=== PATIENT | female | born 1980 | race Caucasian/White ===

== ENCOUNTER 2017-07-02 09:04 | Day surgery (SDC) | payer OTHER ==
[~2017-07-02] VITALS: Ht 165.1 cm; Wt 110.0 kg
[2017-07-02] VITALS (15 sets, daily range): BP systolic 108–145; BP diastolic 53–91; PULSE 50–81; RESP 15–26; Ht 165.1 cm; Wt 110.0 kg
[~2017-07-02 09:04] MED LIST: CEFAZOLIN 2 GM/50 ML (PMX) 50 ML IVPB SCH; SOD CHLORIDE 0.9% 1,000 ML IV SCH
[2017-07-02] MEDS ORDERED: ONDANSETRON 4 MG INJ IV PRN (12:00)
[2017-07-02] MEDS ORDERED: ALBUTEROL 0.083% (NEB) 2.5 MG/3 ML AMP HHN PRN (12:00)
[2017-07-02] MEDS ORDERED: DIPHENHYDRAMINE 50 MG INJ IV PRN (12:00)
[2017-07-02] MEDS ORDERED: MEPERIDINE 25 MG INJ IV PRN (12:00)
[2017-07-02] MEDS ORDERED: HYDROmorphONE (0.2 MG/ML) 10ML SYG IV PRN ×2 (12:00)
[2017-07-02] MEDS ORDERED: METOCLOPRAMIDE 10 MG INJ IV PRN (12:00)
[2017-07-02] MEDS ORDERED: FENTAnyl 50 MCG/ML VIAL IV PRN ×2 (12:00)
[2017-07-02] MEDS ORDERED: FENTAnyl 50 MCG/ML VIAL ONE (12:58)
[2017-07-02] MEDS ORDERED: BUPIVACAINE 0.25% (MPF) 10 ML 10 ML VIAL ONE (13:02)
[2017-07-02] MEDS ORDERED: PROVENTIL HFA 6.7GM INHALER ONE (13:07)
[2017-07-02] MEDS ORDERED: SUCCINYLCHOLINE CHLORIDE 100 MG/5 ML SYG IV ONE (13:39)
[2017-07-02] MEDS ORDERED: SUGAMMADEX SODIUM 200 MG/2 ML VIAL IV ONE (13:39)
[2017-07-02] MEDS ORDERED: ROPIVACAINE 0.2% 20 ML VIAL ONE (13:39)
[2017-07-02] MEDS ORDERED: PROPOFOL 20 ML ONE (13:39)
[2017-07-02] MEDS ORDERED: ROCURONIUM 50 MG INJ ONE (13:39)
[2017-07-02] MEDS ORDERED: CEFAZOLIN 1 GM INJ ONE (13:39)
[2017-07-02] MEDS ORDERED: LIDOCAINE 2% (SDV) 5 ML INJ ONE (13:39)
--- NOTE | 2017-07-02 13:51 | OPR ---
Date/Time of Note Date/Time of Note DATE: 07/02/17 TIME: 13:48 Operative Report Procedure Date: Jul 02, 2017 Preoperative Diagnosis symptomatic gallstones Postoperative Diagnosis same Operation/Procedure Performed 1. laparoscopic cholecystectomy 2. therapeutic injection of subcutaneous local anesthesia Surgeon see signature line Cutter Helper none Anesthesia Type: general Estimated Blood Loss: 0 - 10 ml's Transfusion none Specimen gallbladder Grafts/Implants none Complications none Pt Condition Post Procedure: stable Indications This is a 36-year-old female with symptomatic gallstones. She requests excision of the gallbladder. Risks alternatives benefits and percent were discussed with the patient. Patient expresses understanding consents to the operation. Procedure Description Patient is taken to the OR and prepped and draped in usual sterile fashion. Surgical timeout was performed. IV antibiotics were given. Infraumbilical transverse incision is made with a 15 blade. Dissection cautery was carried down to the fascia. The fascia was grasped with Brant's and divided with curved Saba scissors 0 Vicryl U stitch was placed into the fascia. Balloon Duval trocar was introduced. Pneumoperitoneum is established. Midepigastric 12 mm optical trocar was placed under direct visualization right upper quadrant upper flank 5 mm optical trochars were placed under direct visualization. Upon initial inspection there are some adhesions to the gallbladder. The gallbladder was grasped and retracted in the lateral and our direction. Mobilization was started laterally with the cautery. This allowed careful dissection of the cystic duct. The cystic duct appeared thickened. Proximally the cystic duct was clipped with 3 clips proximal and distally was divided with 35 mm echelon vascular stapler due to his thickened tissues. The cystic artery was divided with 3 clips proximal and clip distal. The gallbladder was taken off the gallbladder bed. There is good hemostasis. The gallbladder was retrieved using Endo Catch bag. Ports removed under direct visualization. 0 Vicryl U stitch was tied down. Skin was closed using skin rochelle. Therapeutic subcutaneous local anesthesia was injected throughout all port sites. Dry dressings were applied. Mary Lou PADILLA Jul 02, 2017 13:51
[2017-07-02] MEDS ORDERED: HYDROCODONE/APAP (5/325) TAB PO ONE (14:00)
[2017-07-02] MEDS: HYDROmorphONE (0.2 MG/ML) 10ML SYG IV PRN ×3 (14:02→14:28)
== END 2017-07-02 16:32 | disposition home or self-care (01) ==
LOC: SDS 09:04
PROVIDERS: ATTEND Surgery
DX: K80.10 Calculus of gallbladder with chronic cholecystitis without obstruction (principal); J45.909 Unspecified asthma, uncomplicated; E66.09 Other obesity due to excess calories
CPT/HCPCS: 47562; 84703; 88304; J0690; J1170; J2175; J2405; J2795; J3010; Z7512; Z7610

== ENCOUNTER 2017-07-13 15:34 | Emergency (ER) | payer OTHER ==
[~2017-07-13] VITALS: Ht 172.7 cm; Wt 109.0 kg
[2017-07-13 15:38] VITALS: Ht 172.7 cm; Wt 109.0 kg
[2017-07-13] MEDS ORDERED: KETOROLAC 15 MG INJ IV STA (16:46)
[2017-07-13] MEDS ORDERED: ONDANSETRON 4 MG INJ IV STA ×2 (16:46→18:05)
--- NOTE | 2017-07-13 16:46 | ERD ---
ER Documentation Chief Complaint Chief Complaint Complains of nausea vomiting and abdominal pain x 3 days HPI This pleasant 36-year-old female presents to emergency department for evaluation of nausea and vomiting and pain. Patient reports that symptoms started yesterday after being seen by her surgeon,, states that she was here for surgical wound evaluation by , s/p cholecystectomy July 022016 patient reports constipation, abdominal pain, states she has not been able to tolerate her pain medication that she has vomited everything included water in the last 18 hours. ROS All systems reviewed and are negative except as per history of present illness. Medications Home Meds Reported Medications Oxymetazoline Hcl* (Afrin Sutherland*) 0.05% - 15 Ml Sutherland, 2 SPRAYS NASAL BID, #1 EA to each nostril 07/14/17 [ Control] No Conflict Check, 1 TAB PO DAILY 07/14/17 Discontinued Scripts Ondansetron (Ondansetron Odt) 4 Mg Tab.rapdis, 4 MG PO Q6H Y for NAUSEA AND/OR VOMITING, #10 TAB Prov:TONIA,TRUDY 07/13/17 Allergies Allergies: Coded Allergies: No Known Allergy (Unverified , 07/14/17) PMhx/Soc History of Surgery: Yes (l knee sx) Anesthesia Reaction: No Hx Neurological Disorder: No Hx Respiratory Disorders: No Hx Cardiac Disorders: No Hx Psychiatric Problems: No Hx Miscellaneous Medical Probl: No Hx Alcohol Use: No Hx Substance Use: Yes (marijuana socialy) Hx Tobacco Use: No Physical Exam Vitals Vital Signs Date Time Temp Pulse Resp B/P Pulse Ox O2 Delivery O2 Flow Rate FiO2 07/13/17 21:12 98.7 18 121/98 100 07/13/17 18:25 98.7 18 121/98 100 07/13/17 15:38 98.3 92 20 132/72 98 Vitals stable, triage notes reviewed Physical Exam Const: Well-nourished well-appearing well-hydrated 36-year-old female in no acute distress Head: Eyes: ENT: Normal External Ears, Nose and Mouth. Mucous membranes moist Neck: . Resp: Cardio: Abd: Open draining umbilical wound status post cholecystectomy 07/03/2017 Skin: Open draining umbilical wound, white exudate, excoriated erythemic surrounding tissue Back: Ext: Neur: Awake and alert Psych: Normal Mood and Affect Result Diagram: 07/13/17 1711 07/13/17 1711 Results 24 hrs Laboratory Tests Test 07/13/17 17:11 White Blood Count 13.410^3/ul Red Blood Count 4.6310^6/ul Hemoglobin 13.4g/dl Hematocrit 40.5% Mean Corpuscular Volume 87.5fl Mean Corpuscular Hemoglobin 28.9pg Mean Corpuscular Hemoglobin Concent 33.1g/dl Red Cell Distribution Width 13.2% Platelet Count 52050^3/UL Mean Platelet Volume 10.5fl Neutrophils % 87.3% Lymphocytes % 7.9% Monocytes % 3.4% Eosinophils % 0.1% Basophils % 0.4% Nucleated Red Blood Cells % 0.0/100WBC Neutrophils # 11.710^3/ul Lymphocytes # 1.110^3/ul Monocytes # 0.510^3/ul Eosinophils # 0.010^3/ul Basophils # 0.110^3/ul Nucleated Red Blood Cells # 0.010^3/ul Urine Color TAWNY Urine Clarity CLEAR Urine pH 8.0 Urine Specific [place] 1.026 Urine Ketones 2+mg/dL Urine Nitrite NEGATIVEmg/dL Urine Bilirubin 2+mg/dL Urine Urobilinogen 2+mg/dL Urine Leukocyte Esterase NEGATIVELeu/ul Urine Microscopic RBC 7/HPF Urine Microscopic WBC 1/HPF Urine Squamous Epithelial Cells FEW/HPF Urine Mucus FEW/HPF Urine Hemoglobin NEGATIVEmg/dL Urine Glucose NEGATIVEmg/dL Urine Total Protein 2+mg/dl Urine Test NEGATIVE Sodium Level 141mmol/L Potassium Level 4.3mmol/L Chloride Level 104mmol/L Carbon Dioxide Level 22mmol/L Anion Gap 19 Blood Urea Nitrogen 11mg/dl Creatinine 0.80mg/dl Glucose Level 113mg/dl Calcium Level 9.7mg/dl Total Bilirubin 2.9mg/dl Direct Bilirubin 2.00mg/dl Indirect Bilirubin 0.9mg/dl Aspartate Amino Transf (AST/SGOT) 324IU/L Alanine Aminotransferase (ALT/SGPT) 439IU/L Alkaline Phosphatase 229IU/L Total Protein 8.6g/dl Albumin 4.7g/dl Globulin 3.90g/dl Albumin/Globulin Ratio 1.20 Lipase 32U/L Current Medications Medications (Trade) Dose Ordered Sig/Yesenia Route PRN Reason Start Time Stop Time Status Last Admin Dose Admin Sodium Chloride (NS) 1,000 ml @ 1,000 mls/hr Q1H ONCE IV 07/13/17 17:00 07/13/17 17:59 DC 07/13/17 17:25 Ondansetron HCl (Zofran Inj) 4 mg ONCE STAT IV 07/13/17 16:46 07/13/17 16:51 DC 07/13/17 17:20 Ketorolac Tromethamine (Toradol) 15 mg ONCE STAT IV 07/13/17 16:46 07/13/17 16:51 DC 07/13/17 17:26 Hydromorphone HCl (Dilaudid) 1 mg ONCE STAT IV 07/13/17 17:51 07/13/17 17:52 DC 07/13/17 18:14 Ondansetron HCl (Zofran Inj) 4 mg ONCE STAT IV 07/13/17 18:05 07/13/17 18:11 DC 07/13/17 18:14 Interpretation text CBC shows no evidence of hemorrhage. WBCs slightly elevated at 13.4 Chemistry shows no evidence of significant electrolyte abnormalities or renal insufficiency Liver function tests shows no evidence of acute biliary or hepatic dysfunction Lipase shows no evidence of acute pancreatitis Urinalysis negative for leukocytosis, nitrates, or hematuria Procedures/MDM PROCEDURE: CT Abdomen and Pelvis without contrast CLINICAL INDICATION: Nausea and vomiting TECHNIQUE: Transaxial images were obtained through the abdomen and pelvis on a multi-slice scanner without the intravenous contrast administration. No oral contrast had previously been given. Sagittal and coronal re-formations were subsequently reconstructed. One or more of the following dose reduction techniques were used: - Automated exposure control. - Adjustment of the mA and/or kV according to patient size. - Use of iterative reconstruction technique. Radiation dose: CTDIvol = 23.67 mGy; DLP = 1278.01 mGy-cm. COMPARISON: No prior studies are available for comparison. FINDINGS: Lung bases: The visualized lung bases appear unremarkable. Liver: The liver is mildly enlarged but no focal lesion is identified. Gallbladder: Surgical rochelle are seen in the gallbladder fossa. Bile ducts: The common hepatic duct is dilated to 1.2 mm but the common bile duct tapers normally through the head of the pancreas. Pancreas: Appears normal with no mass or inflammation evident. Spleen: Normal in size with no focal lesion. Adrenals: Normal with no mass identified. Kidneys, ureters and bladder: The kidneys are normal in size and there is no mass, pathological calcification, or hydronephrosis evident. There is no perinephric stranding. The ureters are normal in caliber and no ureteroliths are identified. The bladder is poorly distended. Reproductive organs: The uterus is midline and no adnexal mass is evident. Stomach and bowel: The stomach appears unremarkable. There are a couple scattered colonic diverticuli but there is no evidence of bowel obstruction or inflammation. Appendix: The vermiform appendix is not discretely identified. Peritoneum: No free intraperitoneal fluid or air is identified. There is a fat containing umbilical hernia. Inferior to the herniated fat there is a fluid collection within the deep midline subcutaneous fat measuring 4.2 x 1.8 x 1.8 cm containing to bubbles of air and with stranding seen in the adjacent fat.. Aorta: Normal in caliber with no aneurysmal dilatation. IVC: Unremarkable. Lymph nodes: No pathologically enlarged nodes are identified. Osseous structures: The osseous elements appear intact. IMPRESSION: 1. There are a few scattered colonic diverticuli but there are no findings to suggest bowel obstruction or inflammation. The vermiform appendix is not discretely identified. 2. No evidence of urinary outflow obstruction or ureterolithiasis. The bladder is poorly distended. 3. Small fat containing umbilical hernia inferior to which is a small fluid collection within the deep midline subcutaneous fat measuring 4.2 x 1.8 x 1.8 cm containing bubbles of air with stranding of the adjacent fat which appears to be inflammatory. 4. Status post cholecystectomy with the common hepatic duct dilated to 1.2 mm but with the common bile duct tapering normally through the head of the pancreas. No pancreatic abnormality is identified. 5. There is no free intraperitoneal fluid or air. Physician Cole Date Time Electronically viewed and signed by Physician Cole on 07/13/2017 20:40 This pleasant 36-year-old female presents to emergency department for nausea, vomiting, and pain control, patient has had a cholecystectomy done on June, states that she did not understand that she should keep her wounds dry, states that she took a bath, she has a open draining umbilical wound, states she was here yesterday for evaluation by her surgeon . Patient reports she had no symptoms yesterday, symptoms started when she returned home. Emergency room course today includes history and physical exam, serology negative for marriage, acute infection, WBCs slightly elevated at 13.4, no evidence of electrolyte imbalance, renal insufficiency, pancreatitis, or hepatitis. Urinalysis negative for infection no urinary tract infection. Patient treated with a liter of normal saline, 4 mg of Zofran, 50 mg of IV Toradol, symptoms not improved patient continues to be in pain, reporting nausea , patient given additional 4 mg of IV Zofran, 1 mg of Dilaudid, reassessed after 20 minutes with improvement of symptoms. I called Dr. Osorio to notify a change in status, physician is not concerned with elevation in WBCs, is concerned about nausea and vomiting, requests that a noncontrast abdomen and pelvis CT be done, patient okay to discharge if normal, if abnormal findings have hospitalist admit patient, and he will consult as specialist., MD will only be called back if CAT scan is abnormal. Departure Diagnosis: Primary Impression: Nausea and vomiting Vomiting type: unspecified Vomiting Intractability: unspecified Qualified Code: R11.2 - Nausea and vomiting, intractability of vomiting not specified, unspecified vomiting type Condition: Good Patient Instructions: Nausea and Vomiting-Adult Additional Instructions: Thank you for for coming to the [facility] for your care today. Please ask your nurse or provider if you have questions about your care today and do not leave until all your questions have been answered. Please use any medications given as directed and follow-up with your doctor (or the doctor you were referred to) in the next 2-3 days. If you do not have a primary care doctor you may follow up at the [facility] (listed below). You may also use motrin and tylenol as needed for fever and/or pain unless instructed otherwise by your provider or nurse. Indications for more urgent follow-up have been discussed, but you may return to the Emergency Department at ANY time for any worrisome or worsening symptoms. If you have abdominal pain, please know that no test or exam you received is perfect and you should follow up within 8 hours for continued pain. If you had any imaging studies today, such as an X-Ray or CT Scan, these studies will be reviewed later by a radiologist. You will be called if there are important findings that were not identified today, so make sure the contact information you provided at registration is correct. If you received any narcotic pain control medicine today, such as Vicodin, Morphine or Dilaudid, your coordination and judgment may be affected for a number of hours. Please do not drive or operate heavy machinery, and you may want someone to assist you at home. If you were given a prescription for narcotic medication, be aware that it is very addictive- use sparingly and only if necessary. TRUDY RANDALL Jul 13, 2017 16:46
[2017-07-13] MEDS ORDERED: SOD CHLORIDE 0.9% 1,000 ML IV ONE (17:00)
[2017-07-13 17:23] LABS: BASOPHIL # 0.1 10^3/ul (0.0-0.1); BASOPHILS % 0.4 % (0.0-2.0); EOSINOPHILS % 0.1 % (0.0-7.0); HEMATOCRIT 40.5 % (37.0-47.0); HEMOGLOBIN 13.4 g/dl (12.0-16.0); LYMPHOCYTES # 1.1 10^3/ul (0.8-2.9); LYMPHOCYTES % 7.9 % (15.0-51.0); MEAN CORPUSCULAR HEMOGLOBIN 28.9 pg (29.0-33.0); MEAN CORPUSCULAR HGB CONC 33.1 g/dl (32.0-37.0); MEAN CORPUSCULAR VOLUME 87.5 fl (82.0-101.0); MEAN PLATELET VOLUME 10.5 fl (7.4-10.4); MONOCYTE # 0.5 10^3/ul (0.3-0.9); MONOCYTES % 3.4 % (0.0-11.0); NEUTROPHIL # 11.7 10^3/ul (1.6-7.5); NEUTROPHILS % 87.3 % (39.0-77.0); PLATELET COUNT 434 10^3/UL (140-415); RED BLOOD COUNT 4.63 10^6/ul (4.20-5.40); RED CELL DISTRIBUTION WIDTH 13.2 % (11.5-14.5); WHITE BLOOD COUNT 13.4 10^3/ul (4.8-10.8)
[2017-07-13 17:38] LABS: ADD UMIC YES; UR ASCORBIC ACID NEGATIVE (NEGATIVE); UR BILIRUBIN (Dip) 2+ mg/dL (NEGATIVE); UR BLOOD (Dip) NEGATIVE (NEGATIVE); UR CLARITY CLEAR (CLEAR); UR COLOR AMBER (YELLOW); UR GLUCOSE (Dip) NEGATIVE (NEGATIVE); UR KETONES (Dip) 2+ mg/dL (NEGATIVE); UR LEUKOCYTE ESTERASE (Dip) NEGATIVE Leu/ul (NEGATIVE); UR MUCUS FEW /HPF (NONE SEEN); UR NITRITE (Dip) NEGATIVE (NEGATIVE); UR RBC 7 /HPF (0-5); UR SPECIFIC GRAVITY (Dip) 1.026 (1.003-1.030); UR SQUAMOUS EPITHELIAL CELL FEW /HPF (FEW); UR TOTAL PROTEIN (Dip) 2+ mg/dl (NEGATIVE); UR UROBILINOGEN (Dip) 2+ mg/dL (NEGATIVE)
[2017-07-13 17:45] LABS: ALBUMIN 4.7 g/dl (3.3-4.9); ALBUMIN/GLOBULIN RATIO 1.2; BILIRUBIN,INDIRECT 0.9 mg/dl (0-1.1); BILIRUBIN,TOTAL 2.9 mg/dl (0.2-1.3); CALCIUM 9.7 mg/dl (8.4-10.2); CREATININE 0.8 mg/dl (0.44-1.00); POTASSIUM 4.3 mmol/L (3.5-5.1); TOTAL PROTEIN 8.6 g/dl (6.1-8.1)
[2017-07-13] MEDS ORDERED: HYDROmorphONE 1 MG/ML SYG IV STA (17:51)
--- NOTE | 2017-07-13 20:41 | RADRPT ---
PROCEDURE: CT Abdomen and Pelvis without contrast CLINICAL INDICATION: Nausea and vomiting TECHNIQUE: Transaxial images were obtained through the abdomen and pelvis on a multi-slice scanner without the intravenous contrast administration. No oral contrast had previously been given. Sagit dennise and coronal re-formations were subsequently reconstructed. One or more of the following dose reduction techniques were used: - Automated exposure control. - Adjustment of the mA and/or kV according to patient size. - Use of iterative reconstruction technique. Radiation dose: CTDIvol = 23.67 mGy; DLP = 1278.01 mGy-cm. COMPARISON: No prior studies are available for comparison. FINDINGS: Lung bases: The visualized lung bases appear unremarkable. Liver: The liver is mildly enlarged but no focal lesion is identified. Gallbladder: Surgical rochelle are seen in the gallbladder fossa. Bile ducts: The common hepatic duct is dilated to 1.2 mm but the common bile duct tapers normally th rough the head of the pancreas. Pancreas: Appears normal with no mass or inflammation evident. Spleen: Normal in size with no focal lesion. Adrenals: Normal with no mass identified. Kidneys, ureters and bladder: The kidneys are normal in size and there is no mass, pathological calc ification, or hydronephrosis evident. There is no perinephric stranding. The ureters are normal in c aliber and no ureteroliths are identified. The bladder is poorly distended. Reproductive organs: The uterus is midline and no adnexal mass is evident. Stomach and bowel: The stomach appears unremarkable. There are a couple scattered colonic diverticul i but there is no evidence of bowel obstruction or inflammation. Appendix: The vermiform appendix is not discretely identified. Peritoneum: No free intraperitoneal fluid or air is identified. There is a fat containing umbilical hernia. Inferior to the herniated fat there is a fluid collection within the deep midline subcutaneo us fat measuring 4.2 x 1.8 x 1.8 cm containing to bubbles of air and with stranding seen in the ledy cent fat.. Aorta: Normal in caliber with no aneurysmal dilatation. IVC: Unremarkable. Lymph nodes: No pathologically enlarged nodes are identified. Osseous structures: The osseous elements appear intact. IMPRESSION: 1. There are a few scattered colonic diverticuli but there are no findings to suggest bowel obstruc tion or inflammation. The vermiform appendix is not discretely identified. 2. No evidence of urinary outflow obstruction or ureterolithiasis. The bladder is poorly distended. 3. Small fat containing umbilical hernia inferior to which is a small fluid collection within the d eep midline subcutaneous fat measuring 4.2 x 1.8 x 1.8 cm containing bubbles of air with stranding o f the adjacent fat which appears to be inflammatory. 4. Status post cholecystectomy with the common hepatic duct dilated to 1.2 mm but with the common b ile duct tapering normally through the head of the pancreas. No pancreatic abnormality is identified . 5. There is no free intraperitoneal fluid or air. Physician Cole Date Time Electronically viewed and signed by Physician Cole on 07/13/2017 20:40 RH/
[2017-07-13] MEDS ORDERED: ONDA4TAB14 PO (20:55)
[2017-07-13 21:12] VITALS: BP 121/98; RESP 18; TEMP 98.7
[2017-07-14] MEDS ORDERED: BIRTH CONTROL PO (11:20)
[2017-07-14] MEDS ORDERED: OXYM15SP34 NASAL (17:19)
== END 2017-07-13 21:24 | disposition home or self-care (01) ==
LOC: FTE 15:34
DX: R11.2 Nausea with vomiting, unspecified (principal)
CPT/HCPCS: 74176; 80053; 81001; 83690; 84703; 85025; 96374; 96375; 96376; J1170; J1885; J2405; J7030; Z7502

== ENCOUNTER 2017-07-14 05:56 | Inpatient (IN) | payer OTHER ==
[~2017-07-14] VITALS: Ht 165.1 cm; Wt 111.0 kg
[~2017-07-14 05:56] MED LIST changes: -CEFAZOLIN 2 GM/50 ML (PMX) 50 ML IVPB SCH; +ONDA4TAB14 PO; -SOD CHLORIDE 0.9% 1,000 ML IV SCH
[2017-07-14 06:01] VITALS: Ht 165.1 cm; Wt 111.0 kg
[2017-07-14] MEDS ORDERED: ONDANSETRON 4 MG INJ IV STA (08:18)
[2017-07-14] MEDS ORDERED: morphine 10 MG INJ IV ONE (08:30)
[2017-07-14] MEDS ORDERED: SOD CHLORIDE 0.9% 1,000 ML IV ONE (08:30)
[2017-07-14] MEDS ORDERED: PIPER-TAZO 3.375 GM IV (PMX) 100 ML IVPB ONE (08:30)
[2017-07-14 09:07] LABS: BASOPHIL # 0.1 10^3/ul (0.0-0.1); BASOPHILS % 0.6 % (0.0-2.0); EOSINOPHILS # 0.2 10^3/ul (0.0-0.5); EOSINOPHILS % 1.4 % (0.0-7.0); HEMATOCRIT 36.3 % (37.0-47.0); HEMOGLOBIN 11.8 g/dl (12.0-16.0); LYMPHOCYTES # 1.8 10^3/ul (0.8-2.9); LYMPHOCYTES % 14.8 % (15.0-51.0); MEAN CORPUSCULAR HEMOGLOBIN 29.6 pg (29.0-33.0); MEAN CORPUSCULAR HGB CONC 32.5 g/dl (32.0-37.0); MEAN CORPUSCULAR VOLUME 91.2 fl (82.0-101.0); MEAN PLATELET VOLUME 11.3 fl (7.4-10.4); MONOCYTE # 0.7 10^3/ul (0.3-0.9); NEUTROPHILS % 76.4 % (39.0-77.0); PLATELET COUNT 299 10^3/UL (140-415); RED BLOOD COUNT 3.98 10^6/ul (4.20-5.40); RED CELL DISTRIBUTION WIDTH 13.4 % (11.5-14.5); WHITE BLOOD COUNT 11.8 10^3/ul (4.8-10.8)
[2017-07-14 09:30] LABS: ALBUMIN 4.1 g/dl (3.3-4.9); ALBUMIN/GLOBULIN RATIO 1.2; BILIRUBIN,DIRECT 2.4 mg/dl (0.00-0.20); BILIRUBIN,INDIRECT 0.9 mg/dl (0-1.1); BILIRUBIN,TOTAL 3.3 mg/dl (0.2-1.3); CALCIUM 8.9 mg/dl (8.4-10.2); CREATININE 0.91 mg/dl (0.44-1.00); POTASSIUM 4.1 mmol/L (3.5-5.1); TOTAL PROTEIN 7.5 g/dl (6.1-8.1)
[2017-07-14 09:32] LABS: ADD UMIC YES; UR ASCORBIC ACID NEGATIVE (NEGATIVE); UR BILIRUBIN (Dip) 2+ mg/dL (NEGATIVE); UR BLOOD (Dip) 1+ mg/dL (NEGATIVE); UR CLARITY CLEAR (CLEAR); UR COLOR AMBER (YELLOW); UR GLUCOSE (Dip) NEGATIVE (NEGATIVE); UR KETONES (Dip) TRACE mg/dL (NEGATIVE); UR LEUKOCYTE ESTERASE (Dip) TRACE Leu/ul (NEGATIVE); UR MUCUS FEW /HPF (NONE SEEN); UR NITRITE (Dip) NEGATIVE (NEGATIVE); UR RBC 1 /HPF (0-5); UR SPECIFIC GRAVITY (Dip) 1.015 (1.003-1.030); UR SQUAMOUS EPITHELIAL CELL FEW /HPF (FEW); UR TOTAL PROTEIN (Dip) 1+ mg/dl (NEGATIVE); UR UROBILINOGEN (Dip) 1+ mg/dL (NEGATIVE)
--- NOTE | 2017-07-14 10:09 | ERD ---
ER Documentation Chief Complaint Chief Complaint right sided abd pain x 3 days, scanty urination x 3 days HPI This is a 36-year-old female that presents to the ER complaining of worsening right upper quadrant abdominal pain with associated nausea and nonbilious nonbloody vomiting. Patient states that pain is severe and constant and she is unable to find a comfortable position to sitting. Patient denies any fevers or chills. She had a cholecystectomy on July 02, 2017 by . Patient was seen in the ER last night, and was consulted. The scan was ordered, and upon findings patient was discharged home. Also complains of open abdominal wound from surgery has had clear to light yellow discharge. , her dressing was changed yesterday here in the ER. Patient denies any new redness, pain or discharge from the area. Patient denies any urinary frequency or dysuria, however admits to dark "soy sauce" colored urine. ROS 12 point review of systems was done, all negative except per HPI. Medications Home Meds Active Scripts Ondansetron (Ondansetron Odt) 4 Mg Tab.rapdis, 4 MG PO Q6H Y for NAUSEA AND/OR VOMITING, #10 TAB Prov:TONIA,TRUDY 07/13/17 Allergies Allergies: Coded Allergies: No Known Allergy (Unverified , 06/29/17) PMhx/Soc History of Surgery: Yes (l knee sx, GALLBLADDER 2016) Anesthesia Reaction: No Hx Neurological Disorder: No Hx Respiratory Disorders: No Hx Cardiac Disorders: No Hx Psychiatric Problems: No Hx Miscellaneous Medical Probl: No Hx Alcohol Use: No Hx Substance Use: Yes (marijuana socialy) Hx Tobacco Use: No Smoking Status: Never smoker Physical Exam Vitals Vital Signs Date Time Temp Pulse Resp B/P Pulse Ox O2 Delivery O2 Flow Rate FiO2 07/14/17 09:00 98.3 59 20 113/86 98 Room Air 07/14/17 06:01 98.3 73 20 126/79 98 Physical Exam GENERAL: The patient is well developed and appropriate for usual state of health , in no apparent distress. HEENT: Atraumatic. CHEST: Clear to auscultation bilaterally. There are no rales, wheezes or rhonchi. HEART: Regular rate and rhythm. No murmurs, clicks, rubs or gallops. ABDOMEN: Patient tender to palpation to the right upper quadrant. Good bowel sounds. No rebound or guarding. No gross peritonitis. No gross organomegaly or masses. EXTREMITIES: Equal pulses bilaterally. There is no peripheral clubbing, cyanosis or edema. No focal swelling or erythema. Full range of motion. Grossly neurovascularly intact. NEURO: Alert and oriented. SKIN: There is an open incision wound to the umbilicus with clear to light yellow discharge. no surrounding erythema or warmth to the touch. Result Diagram: 07/14/17 0837 07/14/1737 Results 24 hrs Laboratory Tests Test 07/14/17 08:37 07/14/17 08:58 White Blood Count 11.810^3/ul Red Blood Count 3.9810^6/ul Hemoglobin 11.8g/dl Hematocrit 36.3% Mean Corpuscular Volume 91.2fl Mean Corpuscular Hemoglobin 29.6pg Mean Corpuscular Hemoglobin Concent 32.5g/dl Red Cell Distribution Width 13.4% Platelet Count 76028^3/UL Mean Platelet Volume 11.3fl Neutrophils % 76.4% Lymphocytes % 14.8% Monocytes % 6.0% Eosinophils % 1.4% Basophils % 0.6% Nucleated Red Blood Cells % 0.0/100WBC Neutrophils # 9.010^3/ul Lymphocytes # 1.810^3/ul Monocytes # 0.710^3/ul Eosinophils # 0.210^3/ul Basophils # 0.110^3/ul Nucleated Red Blood Cells # 0.010^3/ul Sodium Level 140mmol/L Potassium Level 4.1mmol/L Chloride Level 105mmol/L Carbon Dioxide Level 22mmol/L Anion Gap 17 Blood Urea Nitrogen 12mg/dl Creatinine 0.91mg/dl Glucose Level 113mg/dl Calcium Level 8.9mg/dl Total Bilirubin 3.3mg/dl Direct Bilirubin 2.40mg/dl Indirect Bilirubin 0.9mg/dl Aspartate Amino Transf (AST/SGOT) 261IU/L Alanine Aminotransferase (ALT/SGPT) 377IU/L Alkaline Phosphatase 203IU/L Total Protein 7.5g/dl Albumin 4.1g/dl Globulin 3.40g/dl Albumin/Globulin Ratio 1.20 Urine Color TAWNY Urine Clarity CLEAR Urine pH 7.0 Urine Specific [place] 1.015 Urine Ketones TRACEmg/dL Urine Nitrite NEGATIVEmg/dL Urine Bilirubin 2+mg/dL Urine Urobilinogen 1+mg/dL Urine Leukocyte Esterase TRACELeu/ul Urine Microscopic RBC 1/HPF Urine Microscopic WBC 6/HPF Urine Squamous Epithelial Cells FEW/HPF Urine Mucus FEW/HPF Urine Hemoglobin 1+mg/dL Urine Glucose NEGATIVEmg/dL Urine Total Protein 1+mg/dl Current Medications Medications (Trade) Dose Ordered Sig/Yesenia Route PRN Reason Start Time Stop Time Status Last Admin Dose Admin Piperacillin Sod/ Tazobactam Sod 100 ml @ 200 mls/hr ONCE ONCE IVPB 07/14/17 08:30 07/14/17 08:59 DC 07/14/17 09:38 Sodium Chloride (NS) 1,000 ml @ 1,000 mls/hr Q1H ONCE IV 07/14/17 08:30 07/14/17 09:29 DC 07/14/17 08:48 Ondansetron HCl (Zofran Inj) 4 mg ONCE STAT IV 07/14/17 08:18 07/14/17 08:21 DC 07/14/17 08:48 Morphine Sulfate (morphine) 6 mg ONCE ONCE IV 07/14/17 08:30 07/14/17 08:31 DC 07/14/17 08:48 Procedures/MDM I discussed this case with Dr. Osorio. Patient was seen here last night and complains of worsening symptoms. Patient's labs repeated as AST, ALT, alk phos, bilirubin were elevated previously. Will also be admitted for continued monitoring and further testing. Patient was started on IV Zosyn and given fluids and morphine in the ER. See further dictation for further management and care. Departure Diagnosis: Primary Impression: Abdominal pain Condition: Stable YOLI LARSEN Jul 14, 2017 10:09
[2017-07-14] MEDS ORDERED: BIRTH CONTROL PO (11:20)
[2017-07-14 13:00] VITALS: TEMP 98.3
[2017-07-14] MEDS ORDERED: HYDROmorphONE 0.5 MG/0.5 ML SYG IV PRN ×2 (13:00)
[2017-07-14] MEDS ORDERED: PIPER-TAZO 3.375 GM IV (PMX) 100 ML IVPB SCH (13:00)
[2017-07-14 14:15] VITALS: BP 116/68; PULSE 74; RESP 18
[2017-07-14] MEDS: D5W-0.45 NACL + KCL 20 MEQ 1,000 ML IV SCH ×2 (15:17→21:34)
[2017-07-14] MEDS: PIPER-TAZO 3.375 GM IV (PMX) 100 ML IVPB SCH ×2 (15:38→22:05)
--- NOTE | 2017-07-14 15:51 | RADRPT ---
PROCEDURE: MRI MRCP. CLINICAL INDICATION: Abdominal pain. Nausea and vomiting. TECHNIQUE: MRCP was performed without contrast. 3-D/multiplanar reformations and coronal rotating M IP images of the biliary tree were performed by the technologist and at an independent workstation. COMPARISON: CT dated 07/13/2017. FINDINGS: There is mild prominence of the biliary tree, likely related to reservoir effect given th e surgical absence of the gallbladder. There is no filling defect within the biliary tree. There is no pancreatic ductal dilatation or intraluminal filling defect. The remaining visualized abdomen is unremarkable. IMPRESSION: 1. Unremarkable MRCP. No choledocholithiasis or findings to suggest a source of the patient's sympt oms. 2. Status post cholecystectomy. RPTAT: HLBP .Abdiel Dukes MD, Date Time Electronically viewed and signed by .Abdiel Dukes MD, on 07/14/2017 15:19 .P/
--- NOTE | 2017-07-14 15:51 | CONS ---
Date/Time of Note Date/Time of Note DATE: 07/14/17 TIME: 15:41 Assessment/Plan Assessment/Plan Chief Complaint/Hosp Course Impression: 1. abnormal LFT: but elevated previously 2. CT showed inflamed umbilical hernia 3. right sided abdominal pain 4. dehydration Recommendations: 1. monitor for normalization of LFT 2. continue abx per primary and surgery 3. patient say that she got MRCP already but I do not see the result. I will wait until tomorrow to assess for MRCP. If not done, I will order. Reason is to r/o retained stone. 4. continue supportive care Problems: Consultation Date/Type/Reason Admit Date/Time Jul 14, 2017 at 14:13 Date of Consultation: Jul 14, 2017 Type of Consultation: GI Reason for Consultation abdominal pain Hx of Present Illness 36-year-old female s/p recent lap tato on 07-02-17 who was doing well until last night when she developed worsening right upper quadrant abdominal pain with associated nausea and nonbilious nonbloody vomiting. Patient states that pain is severe and constant and she is unable to find a comfortable position to sitting. Patient denies any fevers or chills. Patient denies any urinary frequency or dysuria, however admits to dark "soy sauce" colored urine. CT showed inflamed umbilical hernia. MRCP pending. All point ROS administered, pertinent positives and negatives in HPI otherwise negative. Past Medical History Medical History: gallstones Past Surgical History Past Surgical Hx: cholecystectomy Family History Significant Family History: no pertinent family hx Social History Alcohol Use: none Smoking Status: Never smoker Drug Use: marijuana Exam/Review of Systems Vital Signs Vitals Vital Signs Date Time Temp Pulse Resp B/P Pulse Ox O2 Delivery O2 Flow Rate FiO2 07/14/17 13:00 98.3 58 20 105/71 98 Room Air Exam Constitutional: alert, oriented, well developed Psych: nl mood/affect, no complaints Head: atraumatic, normocephalic Eyes: EOMI, icteric, nl lids ENMT: mucosa pink and moist, nl external ears & nose, nl lips & teeth, nl nasal mucosa & septum Neck: non-tender, supple Respiratory: clear to auscultation, normal air movement Cardiovascular: nl pulses, regular rate and rhythm Gastrointestinal: bowel sounds, non-tender, soft Musculoskeletal: nl extremities to inspection, nl gait and stance Neurological: nl mental status, nl speech, nl strength Results Result Diagram: 07/14/17 0837 07/14/17 0837 Results 24 hrs Laboratory Tests Test 07/14/17 08:37 07/14/17 08:58 White Blood Count 11.8 H Red Blood Count 3.98 L Hemoglobin 11.8 L Hematocrit 36.3 L Mean Corpuscular Volume 91.2 Mean Corpuscular Hemoglobin 29.6 Mean Corpuscular Hemoglobin Concent 32.5 Red Cell Distribution Width 13.4 Platelet Count 299 # Mean Platelet Volume 11.3 H Neutrophils % 76.4 Lymphocytes % 14.8 L Monocytes % 6.0 Eosinophils % 1.4 Basophils % 0.6 Nucleated Red Blood Cells % 0.0 Neutrophils # 9.0 H Lymphocytes # 1.8 Monocytes # 0.7 Eosinophils # 0.2 Basophils # 0.1 Nucleated Red Blood Cells # 0.0 Sodium Level 140 Potassium Level 4.1 Chloride Level 105 Carbon Dioxide Level 22 Anion Gap 17 H Blood Urea Nitrogen 12 Creatinine 0.91 Glucose Level 113 Calcium Level 8.9 Total Bilirubin 3.3 H Direct Bilirubin 2.40 H Indirect Bilirubin 0.9 Aspartate Amino Transf (AST/SGOT) 261 H Alanine Aminotransferase (ALT/SGPT) 377 H Alkaline Phosphatase 203 H Total Protein 7.5 # Albumin 4.1 Globulin 3.40 H Albumin/Globulin Ratio 1.20 Urine Color TAWNY Urine Clarity CLEAR Urine pH 7.0 Urine Specific [place] 1.015 Urine Ketones TRACE A Urine Nitrite NEGATIVE Urine Bilirubin 2+ H Urine Urobilinogen 1+ H Urine Leukocyte Esterase TRACE A Urine Microscopic RBC 1 Urine Microscopic WBC 6 H Urine Squamous Epithelial Cells FEW Urine Mucus FEW A Urine Hemoglobin 1+ H Urine Glucose NEGATIVE Urine Total Protein 1+ H Medications Medications Current Medications Potassium Chloride/Dextrose/ Sod Cl (D5-1/2ns + KCl 20 Meq) 1,000 ml @ 100 mls/ hr Q10H IV ; Start 07/14/17 at 13:00 Ondansetron HCl (Zofran Inj) 4 mg Q4H PRN IV NAUSEA AND/OR VOMITING; Start at 13:00 Pantoprazole (Protonix Iv) 40 mg DAILY@06 IV ; Start 07/15/17 at 06:00 Hydromorphone HCl (Dilaudid) 1 mg Q4H PRN IV PAIN LEVEL 6-10; Start 07/14/17 at 13:00 Hydromorphone HCl 0.5 mg 0.5 mg Q4H PRN IV PAIN LEVEL 1-5; Start 07/14/17 at 13:00 Piperacillin Sod/ Tazobactam Sod (Zosyn 3.375gm/ 100 ml (Pmx)) 100 ml @ 200 mls /hr Q6H IVPB ; Start 07/14/17 at 16:00 KYAW GOTTI MD Jul 14, 2017 15:50
[2017-07-14] MEDS ORDERED: OXYM15SP34 NASAL (17:19)
[2017-07-14] MEDS ORDERED: OXYMETAZOLINE 0.05% 15 ML NAS SPRAY NASAL PRN (18:30)
[2017-07-14 20:00] VITALS: BP 102/53; RESP 19
[2017-07-14 20:29] LABS: ADD UMIC YES; UR ASCORBIC ACID NEGATIVE (NEGATIVE); UR BILIRUBIN (Dip) NEGATIVE (NEGATIVE); UR BLOOD (Dip) 1+ mg/dL (NEGATIVE); UR CLARITY CLEAR (CLEAR); UR COLOR AMBER (YELLOW); UR GLUCOSE (Dip) NEGATIVE (NEGATIVE); UR KETONES (Dip) NEGATIVE (NEGATIVE); UR LEUKOCYTE ESTERASE (Dip) NEGATIVE Leu/ul (NEGATIVE); UR NITRITE (Dip) NEGATIVE (NEGATIVE); UR RBC 2 /HPF (0-5); UR SPECIFIC GRAVITY (Dip) 1.017 (1.003-1.030); UR TOTAL PROTEIN (Dip) NEGATIVE (NEGATIVE); UR UROBILINOGEN (Dip) NEGATIVE (NEGATIVE)
[2017-07-14] MEDS: HYDROmorphONE 2 MG/ML SYG IV PRN (22:24)
[2017-07-15] MEDS: D5W-0.45 NACL + KCL 20 MEQ 1,000 ML IV SCH ×2 (01:10→10:14)
[2017-07-15 02:02] VITALS: BP 116/59; RESP 19
[2017-07-15] MEDS: ONDANSETRON 4 MG INJ IV PRN ×3 (02:51→19:42)
--- NOTE | 2017-07-15 03:06 | HP ---
DATE OF ADMISSION: 07/14/2017 CHIEF COMPLAINT: Abdominal pain and vomiting and wound discharge. HISTORY OF PRESENT ILLNESS: The patient is a 36-year-old obese female with a history of symptomatic gallstone. The patient underwent laparoscopic cholecystectomy on 07/02/2017. Patient was discharg ed home on the same day. The surgery was done by Dr. Osorio. The patient subsequently followed up wit tim Osorio after a few days and rochelle were removed. After removal of rochelle, she started having d rainage from the periumbilical incision and also has increasing pain and vomiting for the last 2 to 3 days. The patient did come to the ER on 07/13/2017 with nausea, vomiting, and abdominal pain; how ever, after treatment she was discharged home. The patient had a white count of 13.4 and elevated l iver enzymes with bilirubin of 2.9. The patient did undergo a CT of the abdomen and pelvis yesterda y, which revealed no free intraperitoneal air or fluid status post cholecystectomy with colon hepati c duct dilated to 1.2 mm, but with the common bile duct tapering normally through the head of the pa ncreas. The patient also had small fat containing umbilical hernia inferior to which it is a small fluid collection within the deep midline subcutaneous fat measuring 4.2 x 1.8 x 1.8 cm, containing b olus of air with stranding of adjacent fat which appears to be inflammatory. The patient was reques mary to follow up with her PMD in 2 to 3 days; however, she returns to ER with continuous symptoms an d drainage, and was seen by ER physician. The patient was noted to have white count of 11.8 with no left shift. The patient was afebrile; however, the patient's liver functions did reveal bilirubin went up to 3.3, mostly direct. The patient continues to have significant elevation of liver enzymes including AST 261, ALT 377, alkaline phosphatase 203. The patient is being admitted for further ev aluation and management. Denies any chest pain or shortness of breath. No reported headache, dizzi ness, syncope. No reported leg pain or itching. No reported leg pain. PAST SURGICAL HISTORY: The patient is status post left knee surgery for benign tumor, details not a vailable. ALLERGIES: NONE. SOCIAL HISTORY: The patient occasionally smokes marijuana. FAMILY HISTORY: The patient has a twin sister who also had gallstone. MEDICATIONS: The patient was on [place] and control pill. PHYSICAL EXAMINATION: GENERAL: The patient is conscious, awake, alert. VITAL SIGNS: Temperature 98.3, pulse 59, respirations 20, blood pressure 113/86, O2 saturation 98% on room air. HEENT: No eye discharge or redness. Oropharynx clear. NECK: Supple. No mass, no thyromegaly. LUNGS: Clear to auscultation. CARDIOVASCULAR: S1, S2 normal. No murmur. ABDOMEN: Soft. Upper abdominal tenderness present. The periumbilical incision is open and has dis charge. No surrounding erythema. NEUROLOGIC: The patient is awake, alert, oriented with no gross focal deficit. LABORATORY DATA: Reviewed. IMPRESSION: 1. Nausea, vomiting, abdominal pain with elevated liver enzymes, status post cholecystectomy, rule out common bile duct stone. The patient's lipase was normal yesterday. Will do followup lipase aga in. The patient will be started empirically on IV Zosyn. 2. Wound dehiscence in the periumbilical area with possible wound infection and fluid collection. I spoke with Dr. Osorio, recommended local dressing. I will also obtain wound culture. The patient al so reported dark urine, possibly related to obstructive jaundice but will also obtain UA and C and S . 3. Obesity. Dr. Fountain has been called from GI standpoint. MRCP is pending. Wound care as per Dr Adrian Osorio. We will continue local wound care. Further recommendations will depend on patient's hospita l course and recommendations from consultants. We will continue to follow her from a medical standp oint. Will continue IV fluid, IV Protonix, SCDs for DVT prophylaxis and IV Zosyn. Dictated By: ZONIA ARTEAGA/NTS Conf#: [id number] DID#: [id number]
[2017-07-15] MEDS: PIPER-TAZO 3.375 GM IV (PMX) 100 ML IVPB SCH ×3 (04:10→16:19)
[2017-07-15] MEDS: HYDROmorphONE 2 MG/ML SYG IV PRN ×2 (05:27→19:43)
[2017-07-15] MEDS ORDERED: PANTOPRAZOLE 40 MG INJ IV SCH (06:00)
[2017-07-15 06:21] LABS: BASOPHIL # 0.1 10^3/ul (0.0-0.1); EOSINOPHILS # 0.4 10^3/ul (0.0-0.5); EOSINOPHILS % 4.1 % (0.0-7.0); HEMATOCRIT 35.1 % (37.0-47.0); HEMOGLOBIN 10.6 g/dl (12.0-16.0); LYMPHOCYTES # 2.2 10^3/ul (0.8-2.9); LYMPHOCYTES % 24.1 % (15.0-51.0); MEAN CORPUSCULAR HEMOGLOBIN 28.3 pg (29.0-33.0); MEAN CORPUSCULAR HGB CONC 30.2 g/dl (32.0-37.0); MEAN CORPUSCULAR VOLUME 93.6 fl (82.0-101.0); MONOCYTE # 0.6 10^3/ul (0.3-0.9); MONOCYTES % 6.8 % (0.0-11.0); NEUTROPHIL # 5.7 10^3/ul (1.6-7.5); NEUTROPHILS % 62.9 % (39.0-77.0); PLATELET COUNT 320 10^3/UL (140-415); RED BLOOD COUNT 3.75 10^6/ul (4.20-5.40)
[2017-07-15 06:54] LABS: ALBUMIN 3.3 g/dl (3.3-4.9); ALBUMIN/GLOBULIN RATIO 0.97; BILIRUBIN,INDIRECT 0.5 mg/dl (0-1.1); BILIRUBIN,TOTAL 0.5 mg/dl (0.2-1.3); CALCIUM 8.4 mg/dl (8.4-10.2); CREATININE 1.01 mg/dl (0.44-1.00); POTASSIUM 4.2 mmol/L (3.5-5.1); TOTAL PROTEIN 6.7 g/dl (6.1-8.1)
[2017-07-15 07:45] VITALS: BP 147/67; RESP 16
--- NOTE | 2017-07-15 07:54 | CONS ---
Date/Time of Note Date/Time of Note DATE: 07/15/17 TIME: 07:52 Assessment/Plan Assessment/Plan Chief Complaint/Hosp Course Impression: 1. abnormal LFT: but elevated previously 2. CT showed inflamed umbilical hernia 3. right sided abdominal pain 4. dehydration 5. MRCP r/o CBD or retained stone Recommendations: 1. monitor for normalization of LFT 2. continue abx per primary and surgery 3. No indication for ERCP at this time. 4. check acute hepatitis panel 5. continue supportive care Problems: Consultation Date/Type/Reason Admit Date/Time Jul 14, 2017 at 14:13 Initial Consult Date 07/14/17 Type of Consultation: GI 24 HR Interval Summary Free Text/Dictation less abdominal pain, no n/v Constitutional: improved Exam/Review of Systems Vital Signs Vitals Vital Signs Date Time Temp Pulse Resp B/P Pulse Ox O2 Delivery O2 Flow Rate FiO2 07/15/17 07:45 98.3 71 16 147/67 99 07/14/17 14:15 Room Air Intake and Output 07/14/17 07/14/17 07/15/17 15:00 23:00 07:00 Intake Total 325 ml 1400 ml Output Total 1250 ml Balance 325 ml 150 ml Exam Constitutional: alert, obese, oriented, well developed Psych: nl mood/affect, no complaints Head: atraumatic, normocephalic Eyes: nl conjunctiva, nl lids, nl sclera ENMT: mucosa pink and moist, nl external ears & nose, nl lips & teeth, nl nasal mucosa & septum Neck: non-tender, supple Respiratory: clear to auscultation, normal air movement Cardiovascular: nl pulses, regular rate and rhythm Gastrointestinal: bowel sounds, non-tender, soft Neurological: nl mental status, nl speech, nl strength Results Result Diagram: 07/15/17 0459 07/15/17 0459 Results 24 hrs Laboratory Tests Test 07/14/17 08:37 07/14/17 08:58 07/14/17 20:08 07/15/17 04:59 White Blood Count 11.8 H 9.0 # Red Blood Count 3.98 L 3.75 L Hemoglobin 11.8 L 10.6 L Hematocrit 36.3 L 35.1 L Mean Corpuscular Volume 91.2 93.6 Mean Corpuscular Hemoglobin 29.6 28.3 L Mean Corpuscular Hemoglobin Concent 32.5 30.2 L Red Cell Distribution Width 13.4 14.0 Platelet Count 299 # 320 Mean Platelet Volume 11.3 H 11.0 H Neutrophils % 76.4 62.9 Lymphocytes % 14.8 L 24.1 Monocytes % 6.0 6.8 Eosinophils % 1.4 4.1 Basophils % 0.6 1.0 Nucleated Red Blood Cells % 0.0 0.0 Neutrophils # 9.0 H 5.7 Lymphocytes # 1.8 2.2 Monocytes # 0.7 0.6 Eosinophils # 0.2 0.4 Basophils # 0.1 0.1 Nucleated Red Blood Cells # 0.0 0.0 Sodium Level 140 142 Potassium Level 4.1 4.2 Chloride Level 105 109 Carbon Dioxide Level 22 26 Anion Gap 17 H 11 Blood Urea Nitrogen 12 12 Creatinine 0.91 1.01 H Glucose Level 113 96 Calcium Level 8.9 8.4 Total Bilirubin 3.3 H 0.5 # Direct Bilirubin 2.40 H 0.00 # Indirect Bilirubin 0.9 0.5 Aspartate Amino Transf (AST/SGOT) 261 H 95 H Alanine Aminotransferase (ALT/SGPT) 377 H 282 H Alkaline Phosphatase 203 H 155 H Total Protein 7.5 # 6.7 Albumin 4.1 3.3 Globulin 3.40 H 3.40 H Albumin/Globulin Ratio 1.20 0.97 Urine Color TAWNY TAWNY Urine Clarity CLEAR CLEAR Urine pH 7.0 5.0 Urine Specific [place] 1.015 1.017 Urine Ketones TRACE A NEGATIVE Urine Nitrite NEGATIVE NEGATIVE Urine Bilirubin 2+ H NEGATIVE Urine Urobilinogen 1+ H NEGATIVE Urine Leukocyte Esterase TRACE A NEGATIVE Urine Microscopic RBC 1 2 Urine Microscopic WBC 6 H 2 Urine Squamous Epithelial Cells FEW Urine Mucus FEW A Urine Hemoglobin 1+ H 1+ H Urine Glucose NEGATIVE NEGATIVE Urine Total Protein 1+ H NEGATIVE Lipase 25 Medications Medications Current Medications Potassium Chloride/Dextrose/ Sod Cl (D5-1/2ns + KCl 20 Meq) 1,000 ml @ 125 mls/ hr Q8H IV Last administered on 07/15/17 01:10; Admin Dose 125 MLS/HR; Start 07/14/17 at 13:00 Ondansetron HCl (Zofran Inj) 4 mg Q4H PRN IV NAUSEA AND/OR VOMITING Last administered on 07/15/17 02:51; Admin Dose 4 MG; Start 07/14/17 at 13:00 Pantoprazole (Protonix Iv) 40 mg DAILY@06 IV Last administered on 07/15/17 05 :26; Admin Dose 40 MG; Start 07/15/17 at 06:00 Hydromorphone HCl 0.5 mg 0.5 mg Q4H PRN IV PAIN LEVEL 1-5 Last administered on 07/14/17 15:38; Admin Dose 0.5 MG; Start 07/14/17 at 13:00 Piperacillin Sod/ Tazobactam Sod (Zosyn 3.375gm/ 100 ml (Pmx)) 100 ml @ 200 mls /hr Q6H IVPB Last administered on 07/15/17 04:10; Admin Dose 200 MLS/HR; Start 07/14/17 at 16:00 Influenza Virus Vaccine (Fluzone) 0.5 ml ONCE ONCE IM* ; Start 07/15/17 at 10: 00; Stop 07/15/17 at 10:01 Patient Own Medication 1 ea DAILY PO ; Start 07/15/17 at 09:00 Oxymetazoline HCl (Afrin [place]) 1 spray BID PRN NASAL NASAL CONGESTION; Start 07/14/17 at 18:30 Hydromorphone HCl (Dilaudid) 1 mg Q4H PRN IV PAIN LEVEL 6-10 Last administered on 07/15/17 05:27; Admin Dose 1 MG; Start 07/14/17 at 22:20 KYAW GOTTI MD Jul 15, 2017 07:54
[2017-07-15] MEDS: BLISOVI PO SCH (09:14)
[2017-07-15] MEDS ORDERED: INFLUENZA VIRUS VACCINE 0.5 ML SYG IM* ONE (10:00)
--- NOTE | 2017-07-15 14:05 | PN ---
DATE: 07/15/2017 SUBJECTIVE: The patient had nausea today, although she did not vomit. No reported fever or chills. No reported chest pain or shortness of breath. PHYSICAL EXAMINATION: GENERAL: The patient is conscious, awake, alert. VITAL SIGNS: Temperature 98.3, pulse 71, blood pressure 147/67, O2 sat 99% on room air, respiration s 16. HEENT: Conjunctivae and lids are normal. NECK: No mass. LUNGS: Fairly clear. CARDIOVASCULAR: S1, S2 normal. ABDOMEN: Soft. Diminished drainage from the periumbilical incision. Upper abdominal tenderness pr esent. Bowel sounds plus. EXTREMITIES: No leg edema. NEUROLOGIC: The patient is awake, alert, fairly oriented. LABORATORY DATA: WBC 9, hemoglobin 10.6, platelets 320. Sodium 142, potassium 4.2, creatinine 1, g lucose 96. Bilirubin is normal today. AST is down to 95, ALT down to 282, alk phos down to 155. IMPRESSION: 1. Status post laparoscopic cholecystectomy with elevated liver enzymes and bilirubin resolved. MR CP negative for any stone. The patient did have a significant drop in bilirubin and liver enzymes, may have passed small common bile duct stone. Continue IV antibiotic. Wound culture from the periu mbilical incision is pending. Continue empiric IV Zosyn. Hepatitis panel pending. Will start on c lear liquid diet and advance as tolerated. Wound care consult is also pending. Dictated By: ZONIA ARTEAGA/ISMAEL Conf#: [id number] DID#: [id number]
[2017-07-15 15:46] VITALS: BP 118/61; RESP 18
[2017-07-15 20:00] VITALS: BP 121/58; RESP 19
[2017-07-15] MEDS: metroNIDAZOLE 500 MG/NS (PMX) 100 ML IVPB SCH (21:24)
[2017-07-15] MEDS: MEROPENEM 1 GM/50ML(PMX) 50 ML IVPB SCH (21:24)
[2017-07-15] MEDS: ZOLPIDEM 5 MG TAB PO PRN (21:24)
[2017-07-16 02:00] VITALS: BP 110/58; RESP 16
[2017-07-16] MEDS: D5W-0.45 NACL + KCL 20 MEQ 1,000 ML IV SCH ×2 (03:39→17:02)
[2017-07-16] MEDS: metroNIDAZOLE 500 MG/NS (PMX) 100 ML IVPB SCH ×3 (05:37→21:05)
[2017-07-16 05:59] LABS: HAAIG REFLEX REFLEX FILED
[2017-07-16 06:05] LABS: BASOPHIL # 0.1 10^3/ul (0.0-0.1); BASOPHILS % 0.8 % (0.0-2.0); EOSINOPHILS # 0.3 10^3/ul (0.0-0.5); EOSINOPHILS % 3.5 % (0.0-7.0); HEMOGLOBIN 10.7 g/dl (12.0-16.0); LYMPHOCYTES # 1.9 10^3/ul (0.8-2.9); LYMPHOCYTES % 20.5 % (15.0-51.0); MEAN CORPUSCULAR HEMOGLOBIN 29.2 pg (29.0-33.0); MEAN CORPUSCULAR HGB CONC 31.5 g/dl (32.0-37.0); MEAN CORPUSCULAR VOLUME 92.6 fl (82.0-101.0); MEAN PLATELET VOLUME 10.9 fl (7.4-10.4); MONOCYTE # 0.6 10^3/ul (0.3-0.9); MONOCYTES % 6.2 % (0.0-11.0); NEUTROPHIL # 6.3 10^3/ul (1.6-7.5); NEUTROPHILS % 67.7 % (39.0-77.0); PLATELET COUNT 335 10^3/UL (140-415); RED BLOOD COUNT 3.67 10^6/ul (4.20-5.40); RED CELL DISTRIBUTION WIDTH 13.5 % (11.5-14.5); WHITE BLOOD COUNT 9.3 10^3/ul (4.8-10.8)
[2017-07-16 06:39] LABS: CALCIUM 8.5 mg/dl (8.4-10.2); CREATININE 0.82 mg/dl (0.44-1.00)
[2017-07-16 07:26] LABS: HEPATITIS B CORE ANTIBODY NEGATIVE (NEGATIVE)
[2017-07-16 08:05] VITALS: BP 111/62; RESP 18
[2017-07-16] MEDS: MEROPENEM 1 GM/50ML(PMX) 50 ML IVPB SCH ×2 (08:20→21:05)
[2017-07-16] MEDS: FAMOTIDINE 20 MG INJ IV SCH ×2 (08:20→21:05)
[2017-07-16] MEDS: BLISOVI PO SCH (08:24)
[2017-07-16] MEDS: HYDROmorphONE 2 MG/ML SYG IV PRN (09:13)
[2017-07-16] MEDS: ONDANSETRON 4 MG INJ IV PRN (09:13)
--- NOTE | 2017-07-16 09:28 | CONS ---
DATE OF ADMISSION: 07/14/2017 DATE OF CONSULTATION: 07/16/2017 INDICATION: This is a 36-year-old female with morbid obesity who underwent a laparoscopic cholecyst ectomy. Postoperatively, she was doing well and on her postoperative visit she had her rochelle héctor harley. The wound apparently had opened and had drainage in the next couple days. She reports that morro wu has some frozen pizza for a few days later and started having nausea and vomiting. She was evalua mary in the ER. CT scan was performed and did not show any findings. However, because of the nausea and vomiting, she was admitted. She underwent further evaluation with an MRCP which did not show a ny findings that were concerning from the gallbladder perspective. She did not have any choledochol ithiasis and her biliary system was normal. However, she did have increased LFTs. GI physician was also consulted and concurred with the current management. General surgery was also consulted to ev aluate the patient. PAST MEDICAL HISTORY: None. PAST SURGICAL HISTORY: Laparoscopic cholecystectomy, knee surgery. ALLERGIES: NO KNOWN DRUG ALLERGIES. SOCIAL HISTORY: Occasionally smokes marijuana. Denies alcohol or tobacco use. LABORATORY DATA: White blood cell count 9.3, hemoglobin 10.7, hematocrit 34, platelet count 335. S odium is 141, potassium is 4.0, chloride is 110, carbon dioxide is 25, BUN is 6, creatinine is 0.8, glucose is 99, total bilirubin 0.5, AST of 95, ALT is 282, alkaline phosphatase 155, trending down, lipase was 25. MRCP shows unremarkable MRCP, no choledocholithiasis or findings to suggest the sour ce of the patient's symptoms status post cholecystectomy. PHYSICAL EXAMINATION: VITAL SIGNS: Temperature is 98.4, pulse is 90, respiratory rate is 18, blood pressure is 111/62. G ENERAL: Obese female. CARDIOVASCULAR: Regular rate and rhythm. LUNGS: Clear to auscultation. ABDOMEN: Soft, focal tenderness around the infraumbilical wound with some drainage, no purulence, n o evidence of active infection. ASSESSMENT AND PLAN: This is a 36-year-old female with nausea, vomiting and diarrhea after cholecystectomy. There is no evidence of any biliary injury. Most likely she has gastroenteritis that is slowly resolving. We w ill continue to follow. Will start diet today. Dictated By: BRE BELL/NTS Conf#: [id number] DID#: [id number]
[2017-07-16 14:30] VITALS: BP 97/55; RESP 18
--- NOTE | 2017-07-16 17:57 | PN ---
Date/Time of Note Date/Time of Note DATE: 07/16/17 TIME: 17:49 Assessment/Plan VTE Prophylaxis VTE Prophylaxis Intervention: SCD's Lines/Catheters IV [facility] Peripheral IV Assessment/Plan Chief Complaint/Hosp Course Patient stated that she feels slightly better, no emesis today, able to tolerate diet. Problems: Assessment/Plan - Nausea and vomiting, Dr. Ricketts is following in gastroenterology consultation. MRCP negative for any choledocholithiasis. - Status post laparoscopic cholecystectomy. Dr. Osorio is following in general surgery consultation. - Post op wound, cont abx. F/up on wound cx. Further recommendations based on clinical course. Plan of care discussed with Dr. Howell. Exam/Review of Systems Vital Signs Vitals Vital Signs Date Time Temp Pulse Resp B/P Pulse Ox O2 Delivery O2 Flow Rate FiO2 07/16/17 14:30 98.0 68 18 97/55 98 07/14/17 14:15 Room Air Intake and Output 07/15/17 07/15/17 07/16/17 15:00 23:00 07:00 Intake Total 725 ml 1585 ml 1720 ml Output Total 600 ml 700 ml Balance 725 ml 985 ml 1020 ml Exam Constitutional: alert Neck: supple Respiratory: normal air movement Cardiovascular: nl pulses Gastrointestinal: non-tender, other (s/p laparoscopic surgical incisions, open wound), soft Musculoskeletal: nl extremities to inspection Extremities: normal pulses Results Result Diagram: 07/16/17 0443 07/16/17 0448 Results 24 hrs Laboratory Tests Test 07/16/17 02:00 07/16/17 04:43 07/16/17 04:48 Stool Occult Blood NEGATIVE White Blood Count 9.3 Red Blood Count 3.67 L Hemoglobin 10.7 L Hematocrit 34.0 L Mean Corpuscular Volume 92.6 Mean Corpuscular Hemoglobin 29.2 Mean Corpuscular Hemoglobin Concent 31.5 L Red Cell Distribution Width 13.5 Platelet Count 335 Mean Platelet Volume 10.9 H Neutrophils % 67.7 Lymphocytes % 20.5 Monocytes % 6.2 Eosinophils % 3.5 Basophils % 0.8 Nucleated Red Blood Cells % 0.0 Neutrophils # 6.3 Lymphocytes # 1.9 Monocytes # 0.6 Eosinophils # 0.3 Basophils # 0.1 Nucleated Red Blood Cells # 0.0 Sodium Level 141 Potassium Level 4.0 Chloride Level 110 Carbon Dioxide Level 25 Anion Gap 10 Blood Urea Nitrogen 6 L Creatinine 0.82 Glucose Level 99 Calcium Level 8.5 Hepatitis B Surface Antigen NEGATIVE Hepatitis B Core Total Antibody NEGATIVE Hepatitis C Antibody NEGATIVE Medications Medications Current Medications Potassium Chloride/Dextrose/ Sod Cl (D5-1/2ns + KCl 20 Meq) 1,000 ml @ 75 mls/ hr [id number] IV Last administered on 07/16/17 17:02; Admin Dose 75 MLS/HR; Start 07/14/17 at 13:00 Ondansetron HCl (Zofran Inj) 4 mg Q4H PRN IV NAUSEA AND/OR VOMITING Last administered on 07/16/17 09:13; Admin Dose 4 MG; Start 07/14/17 at 13:00 Hydromorphone HCl (Dilaudid) 0.5 mg Q4H PRN IV PAIN LEVEL 1-5 Last administered on 07/14/17 15:38; Admin Dose 0.5 MG; Start 07/14/17 at 13:00 Patient Own Medication 1 ea DAILY PO Last administered on 07/16/17 08:24; Admin Dose 1 EA; Start 07/15/17 at 09:00 Oxymetazoline HCl (Afrin [place]) 1 spray BID PRN NASAL NASAL CONGESTION; Start 07/14/17 at 18:30 Hydromorphone HCl (Dilaudid) 1 mg Q4H PRN IV PAIN LEVEL 6-10 Last administered on 07/16/17 09:13; Admin Dose 1 MG; Start 07/14/17 at 22:20 Zolpidem Tartrate (Ambien) 5 mg HS PRN PO INSOMNIA Last administered on 21:24; Admin Dose 5 MG; Start 07/15/17 at 11:30 Famotidine 20 mg 20 mg Q12 IV Last administered on 07/16/17 08:20; Admin Dose 20 MG; Start 07/16/17 at 09:00 Meropenem/Sodium Chloride 50 ml @ 100 mls/hr BID IVPB Last administered on 08:20; Admin Dose 100 MLS/HR; Start 07/15/17 at 21:00 Metronidazole (Flagyl 500 Mg (Pmx)) 100 ml @ 100 mls/hr Q8 IVPB Last administered on 10/23/17at 13:36; Admin Dose 100 MLS/HR; Start 07/15/17 at 22: 00 MADAN CARD Jul 16, 2017 17:57
[2017-07-16 19:50] VITALS: BP 112/56; RESP 16
--- NOTE | 2017-07-16 20:19 | CONS ---
Date/Time of Note Date/Time of Note DATE: 07/16/17 TIME: 20:19 Assessment/Plan Assessment/Plan Additional Assessment/Plan Impression: 1. abnormal LFT: but elevated previously 2. CT showed inflamed umbilical hernia 3. right sided abdominal pain 4. dehydration 5. MRCP r/o CBD or retained stone, it was negative Recommendations: 1. monitor for normalization of LFT 2. continue abx per primary and surgery 3. No indication for ERCP at this time. 4. check acute hepatitis panel 5. continue supportive care Consultation Date/Type/Reason Admit Date/Time Jul 14, 2017 at 14:13 Initial Consult Date 07/14/17 Type of Consultation: GI 24 HR Interval Summary Constitutional: improved Exam/Review of Systems Vital Signs Vitals Vital Signs Date Time Temp Pulse Resp B/P Pulse Ox O2 Delivery O2 Flow Rate FiO2 07/16/17 19:50 98.7 69 16 112/56 98 07/14/17 14:15 Room Air Intake and Output 07/15/17 07/15/17 07/16/17 15:00 23:00 07:00 Intake Total 725 ml 1585 ml 1720 ml Output Total 600 ml 700 ml Balance 725 ml 985 ml 1020 ml Exam Constitutional: alert, oriented, well developed Psych: nl mood/affect, no complaints Head: atraumatic, normocephalic Eyes: EOMI, PERRL, nl conjunctiva, nl lids, nl sclera ENMT: nl external ears & nose, nl lips & teeth, nl nasal mucosa & septum Neck: non-tender, supple Respiratory: clear to auscultation, normal air movement Cardiovascular: nl pulses, regular rate and rhythm Gastrointestinal: nl liver, spleen, non-tender, soft Musculoskeletal: nl extremities to inspection, nl gait and stance Extremities: normal pulses 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, nl mental status, nl speech, nl strength Skin: nl turgor, No rash or lesions Lymph: nl lymph nodes Results Result Diagram: 07/16/17 0443 07/16/17 0448 Results 24 hrs Laboratory Tests Test 07/16/17 02:00 07/16/17 04:43 07/16/17 04:48 Stool Occult Blood NEGATIVE White Blood Count 9.3 Red Blood Count 3.67 L Hemoglobin 10.7 L Hematocrit 34.0 L Mean Corpuscular Volume 92.6 Mean Corpuscular Hemoglobin 29.2 Mean Corpuscular Hemoglobin Concent 31.5 L Red Cell Distribution Width 13.5 Platelet Count 335 Mean Platelet Volume 10.9 H Neutrophils % 67.7 Lymphocytes % 20.5 Monocytes % 6.2 Eosinophils % 3.5 Basophils % 0.8 Nucleated Red Blood Cells % 0.0 Neutrophils # 6.3 Lymphocytes # 1.9 Monocytes # 0.6 Eosinophils # 0.3 Basophils # 0.1 Nucleated Red Blood Cells # 0.0 Sodium Level 141 Potassium Level 4.0 Chloride Level 110 Carbon Dioxide Level 25 Anion Gap 10 Blood Urea Nitrogen 6 L Creatinine 0.82 Glucose Level 99 Calcium Level 8.5 Hepatitis B Surface Antigen NEGATIVE Hepatitis B Core Total Antibody NEGATIVE Hepatitis C Antibody NEGATIVE Medications Medications Current Medications Potassium Chloride/Dextrose/ Sod Cl (D5-1/2ns + KCl 20 Meq) 1,000 ml @ 75 mls/ hr [id number] IV Last administered on 07/16/17 17:02; Admin Dose 75 MLS/HR; Start 07/14/17 at 13:00 Ondansetron HCl (Zofran Inj) 4 mg Q4H PRN IV NAUSEA AND/OR VOMITING Last administered on 07/16/17 09:13; Admin Dose 4 MG; Start 07/14/17 at 13:00 Hydromorphone HCl (Dilaudid) 0.5 mg Q4H PRN IV PAIN LEVEL 1-5 Last administered on 07/14/17 15:38; Admin Dose 0.5 MG; Start 07/14/17 at 13:00 Patient Own Medication 1 ea DAILY PO Last administered on 07/16/17 08:24; Admin Dose 1 EA; Start 07/15/17 at 09:00 Oxymetazoline HCl (Afrin [place]) 1 spray BID PRN NASAL NASAL CONGESTION; Start 07/14/17 at 18:30 Hydromorphone HCl (Dilaudid) 1 mg Q4H PRN IV PAIN LEVEL 6-10 Last administered on 07/16/17 09:13; Admin Dose 1 MG; Start 07/14/17 at 22:20 Zolpidem Tartrate (Ambien) 5 mg HS PRN PO INSOMNIA Last administered on 21:24; Admin Dose 5 MG; Start 07/15/17 at 11:30 Famotidine 20 mg 20 mg Q12 IV Last administered on 07/16/17 08:20; Admin Dose 20 MG; Start 07/16/17 at 09:00 Meropenem/Sodium Chloride 50 ml @ 100 mls/hr BID IVPB Last administered on 08:20; Admin Dose 100 MLS/HR; Start 07/15/17 at 21:00 Metronidazole (Flagyl 500 Mg (Pmx)) 100 ml @ 100 mls/hr Q8 IVPB Last administered on 07/16/17 13:36; Admin Dose 100 MLS/HR; Start 07/15/17 at 22: 00 ISSA GASTON MD Jul 16, 2017 20:19
[2017-07-16] MEDS: ZOLPIDEM 5 MG TAB PO PRN (21:45)
[2017-07-17 02:28] VITALS: BP 113/57; RESP 16
[2017-07-17 05:22] LABS: BASOPHIL # 0.1 10^3/ul (0.0-0.1); BASOPHILS % 0.8 % (0.0-2.0); EOSINOPHILS # 0.4 10^3/ul (0.0-0.5); EOSINOPHILS % 3.8 % (0.0-7.0); HEMATOCRIT 34.8 % (37.0-47.0); HEMOGLOBIN 10.7 g/dl (12.0-16.0); LYMPHOCYTES # 2.3 10^3/ul (0.8-2.9); MEAN CORPUSCULAR HEMOGLOBIN 28.6 pg (29.0-33.0); MEAN CORPUSCULAR HGB CONC 30.7 g/dl (32.0-37.0); MEAN PLATELET VOLUME 10.9 fl (7.4-10.4); MONOCYTE # 0.7 10^3/ul (0.3-0.9); NEUTROPHIL # 5.8 10^3/ul (1.6-7.5); NEUTROPHILS % 62.3 % (39.0-77.0); PLATELET COUNT 314 10^3/UL (140-415); RED BLOOD COUNT 3.74 10^6/ul (4.20-5.40); RED CELL DISTRIBUTION WIDTH 13.6 % (11.5-14.5); WHITE BLOOD COUNT 9.3 10^3/ul (4.8-10.8)
[2017-07-17] MEDS: D5W-0.45 NACL + KCL 20 MEQ 1,000 ML IV SCH (05:34)
[2017-07-17 05:42] LABS: CALCIUM 8.6 mg/dl (8.4-10.2); CREATININE 0.89 mg/dl (0.44-1.00)
[2017-07-17] MEDS: metroNIDAZOLE 500 MG/NS (PMX) 100 ML IVPB SCH ×2 (05:43→14:40)
[2017-07-17] MEDS: HYDROmorphONE 2 MG/ML SYG IV PRN (06:45)
[2017-07-17] MEDS: ONDANSETRON 4 MG INJ IV PRN ×2 (07:40→12:11)
[2017-07-17 08:11] VITALS: BP 120/56; RESP 19
[2017-07-17] MEDS: FAMOTIDINE 20 MG INJ IV SCH (09:40)
[2017-07-17] MEDS: BLISOVI PO SCH (09:40)
[2017-07-17] MEDS: MEROPENEM 1 GM/50ML(PMX) 50 ML IVPB SCH (09:40)
--- NOTE | 2017-07-17 12:41 | CONS ---
Date/Time of Note Date/Time of Note DATE: 07/17/17 TIME: 12:39 Assessment/Plan Assessment/Plan Additional Assessment/Plan Impression: 1. abnormal LFT: but elevated previously 2. CT showed inflamed umbilical hernia 3. right sided abdominal pain, resolved 4. dehydration 5. MRCP r/o CBD or retained stone, it was negative Recommendations: 1. monitor for normalization of LFT 2. continue abx per primary and surgery 3. No indication for ERCP at this time. 4. check acute hepatitis panel, all hepatitis panel negative 5. continue supportive care 6. Surgical wound care it is healing well Consultation Date/Type/Reason Admit Date/Time Jul 14, 2017 at 14:13 Initial Consult Date 07/14/17 Type of Consultation: GI 24 HR Interval Summary Free Text/Dictation No right upper quadrant pain no nausea Patient complains of pain over the laparoscopic port wound Exam/Review of Systems Vital Signs Vitals Vital Signs Date Time Temp Pulse Resp B/P Pulse Ox O2 Delivery O2 Flow Rate FiO2 07/17/17 08:11 97.6 54 19 120/56 97 07/14/17 14:15 Room Air Intake and Output 07/16/17 07/16/17 07/17/17 15:00 23:00 07:00 Intake Total 150 ml 2010 ml 900 ml Output Total 1000 ml Balance 150 ml 1010 ml 900 ml Exam Constitutional: alert, oriented, well developed Psych: nl mood/affect, no complaints Head: atraumatic, normocephalic Eyes: EOMI, PERRL, nl conjunctiva, nl lids, nl sclera ENMT: nl external ears & nose, nl lips & teeth, nl nasal mucosa & septum Neck: non-tender, supple Respiratory: clear to auscultation, normal air movement Cardiovascular: nl pulses, regular rate and rhythm Gastrointestinal: nl liver, spleen, non-tender, soft Musculoskeletal: nl extremities to inspection, nl gait and stance Extremities: normal pulses Neurological: BULB TESTER II-XII intact, nl mental status, nl speech, nl strength Skin: nl turgor, No rash or lesions Lymph: nl lymph nodes Results Result Diagram: 07/17/17 0433 07/17/17 0433 Results 24 hrs Laboratory Tests Test 07/17/17 04:33 White Blood Count 9.3 Red Blood Count 3.74 L Hemoglobin 10.7 L Hematocrit 34.8 L Mean Corpuscular Volume 93.0 Mean Corpuscular Hemoglobin 28.6 L Mean Corpuscular Hemoglobin Concent 30.7 L Red Cell Distribution Width 13.6 Platelet Count 314 Mean Platelet Volume 10.9 H Neutrophils % 62.3 Lymphocytes % 25.0 Monocytes % 7.0 Eosinophils % 3.8 Basophils % 0.8 Nucleated Red Blood Cells % 0.0 Neutrophils # 5.8 Lymphocytes # 2.3 Monocytes # 0.7 Eosinophils # 0.4 Basophils # 0.1 Nucleated Red Blood Cells # 0.0 Sodium Level 141 Potassium Level 4.0 Chloride Level 109 Carbon Dioxide Level 27 Anion Gap 9 Blood Urea Nitrogen 7 Creatinine 0.89 Glucose Level 103 Calcium Level 8.6 Medications Medications Current Medications Potassium Chloride/Dextrose/ Sod Cl (D5-1/2ns + KCl 20 Meq) 1,000 ml @ 75 mls/ hr [id number] IV Last administered on 07/16/17 17:02; Admin Dose 75 MLS/HR; Start 07/14/17 at 13:00 Ondansetron HCl (Zofran Inj) 4 mg Q4H PRN IV NAUSEA AND/OR VOMITING Last administered on 07/17/17 12:11; Admin Dose 4 MG; Start 07/14/17 at 13:00 Hydromorphone HCl (Dilaudid) 0.5 mg Q4H PRN IV PAIN LEVEL 1-5 Last administered on 07/14/17 15:38; Admin Dose 0.5 MG; Start 07/14/17 at 13:00 Patient Own Medication 1 ea DAILY PO Last administered on 07/17/17 09:40; Admin Dose 1 EA; Start 07/15/17 at 09:00 Oxymetazoline HCl (Afrin [place]) 1 spray BID PRN NASAL NASAL CONGESTION; Start 07/14/17 at 18:30 Hydromorphone HCl (Dilaudid) 1 mg Q4H PRN IV PAIN LEVEL 6-10 Last administered on 07/17/17 06:45; Admin Dose 1 MG; Start 07/14/17 at 22:20 Zolpidem Tartrate (Ambien) 5 mg HS PRN PO INSOMNIA Last administered on 21:45; Admin Dose 5 MG; Start 07/15/17 at 11:30 Famotidine 20 mg 20 mg Q12 IV Last administered on 07/17/17 09:40; Admin Dose 20 MG; Start 07/16/17 at 09:00 Meropenem/Sodium Chloride 50 ml @ 100 mls/hr BID IVPB Last administered on 09:40; Admin Dose 100 MLS/HR; Start 07/15/17 at 21:00 Metronidazole (Flagyl 500 Mg (Pmx)) 100 ml @ 100 mls/hr Q8 IVPB Last administered on 07/17/17 05:43; Admin Dose 100 MLS/HR; Start 07/15/17 at 22: 00 ISSA GASTON MD Jul 17, 2017 12:41
--- NOTE | 2017-07-17 13:20 | PN ---
Date/Time of Note Date/Time of Note DATE: 07/17/17 TIME: 13:20 Assessment/Plan VTE Prophylaxis VTE Prophylaxis Intervention: SCD's Lines/Catheters IV Catheter Type (from Nrs): Peripheral IV Assessment/Plan Chief Complaint/Hosp Course s/p lap tato with small open wound had gastroenteritis now resolving Problems: Assessment/Plan dc home Subjective 24 Hr Interval Summary Free Text/Dictation doing well, no issues, tolerating diet Exam/Review of Systems Vital Signs Vitals Vital Signs Date Time Temp Pulse Resp B/P Pulse Ox O2 Delivery O2 Flow Rate FiO2 07/17/17 08:11 97.6 54 19 120/56 97 07/14/17 14:15 Room Air Intake and Output 07/16/17 07/16/17 07/17/17 15:00 23:00 07:00 Intake Total 150 ml 2010 ml 900 ml Output Total 1000 ml Balance 150 ml 1010 ml 900 ml Exam wound clean with packing Results Result Diagram: 07/17/17 0433 07/17/17 0433 Results 24 hrs Laboratory Tests Test 07/17/17 04:33 White Blood Count 9.3 Red Blood Count 3.74 L Hemoglobin 10.7 L Hematocrit 34.8 L Mean Corpuscular Volume 93.0 Mean Corpuscular Hemoglobin 28.6 L Mean Corpuscular Hemoglobin Concent 30.7 L Red Cell Distribution Width 13.6 Platelet Count 314 Mean Platelet Volume 10.9 H Neutrophils % 62.3 Lymphocytes % 25.0 Monocytes % 7.0 Eosinophils % 3.8 Basophils % 0.8 Nucleated Red Blood Cells % 0.0 Neutrophils # 5.8 Lymphocytes # 2.3 Monocytes # 0.7 Eosinophils # 0.4 Basophils # 0.1 Nucleated Red Blood Cells # 0.0 Sodium Level 141 Potassium Level 4.0 Chloride Level 109 Carbon Dioxide Level 27 Anion Gap 9 Blood Urea Nitrogen 7 Creatinine 0.89 Glucose Level 103 Calcium Level 8.6 Medications Medications Current Medications Potassium Chloride/Dextrose/ Sod Cl (D5-1/2ns + KCl 20 Meq) 1,000 ml @ 75 mls/ hr [id number] IV Last administered on 07/16/17 17:02; Admin Dose 75 MLS/HR; Start 07/14/17 at 13:00 Ondansetron HCl (Zofran Inj) 4 mg Q4H PRN IV NAUSEA AND/OR VOMITING Last administered on 07/17/17 12:11; Admin Dose 4 MG; Start 07/14/17 at 13:00 Hydromorphone HCl (Dilaudid) 0.5 mg Q4H PRN IV PAIN LEVEL 1-5 Last administered on 07/14/17 15:38; Admin Dose 0.5 MG; Start 07/14/17 at 13:00 Patient Own Medication 1 ea DAILY PO Last administered on 07/17/17 09:40; Admin Dose 1 EA; Start 07/15/17 at 09:00 Oxymetazoline HCl (Afrin [place]) 1 spray BID PRN NASAL NASAL CONGESTION; Start 07/14/17 at 18:30 Hydromorphone HCl (Dilaudid) 1 mg Q4H PRN IV PAIN LEVEL 6-10 Last administered on 07/17/17 06:45; Admin Dose 1 MG; Start 07/14/17 at 22:20 Zolpidem Tartrate (Ambien) 5 mg HS PRN PO INSOMNIA Last administered on 21:45; Admin Dose 5 MG; Start 07/15/17 at 11:30 Famotidine 20 mg 20 mg Q12 IV Last administered on 07/17/17 09:40; Admin Dose 20 MG; Start 07/16/17 at 09:00 Meropenem/Sodium Chloride 50 ml @ 100 mls/hr BID IVPB Last administered on 09:40; Admin Dose 100 MLS/HR; Start 07/15/17 at 21:00 Metronidazole (Flagyl 500 Mg (Pmx)) 100 ml @ 100 mls/hr Q8 IVPB Last administered on 07/17/17 05:43; Admin Dose 100 MLS/HR; Start 07/15/17 at 22: 00 Mary Lou PADILLA Jul 17, 2017 13:20
[2017-07-17 14:00] VITALS: BP 102/65; RESP 18
[2017-07-17] MEDS ORDERED: ZOLP5TAB PO (14:37)
[2017-07-17] MEDS ORDERED: CEPH500C PO (14:37)
[2017-07-17] MEDS ORDERED: HYDR-906 PO (14:37)
[2017-07-17 15:32] LABS: ALBUMIN 4.2 g/dl (3.3-4.9); BILIRUBIN,INDIRECT 0.2 mg/dl (0-1.1); BILIRUBIN,TOTAL 0.2 mg/dl (0.2-1.3); TOTAL PROTEIN 7.3 g/dl (6.1-8.1)
--- NOTE | 2017-07-22 21:38 | DS ---
Date/Time of Note Date/Time of Note DATE: 07/22/17 TIME: 21:33 Discharge Summary Admission/Discharge Info Admit Date/Time Jul 14, 2017 at 14:13 Discharge Date/Time Jul 17, 2017 at 17:15 Patient Condition: Stable Hx of Present Illness The patient is a 36-year-old obese female with a history of symptomatic gallstone. The patient underwent laparoscopic cholecystectomy on 07/02/2017. Patient was discharged home on the same day. The surgery was done by Dr. Osorio. The patient subsequently followed up with Dr. Osorio after a few days and rochelle were removed. After removal of rochelle, she started having drainage from the periumbilical incision and also has increasing pain and vomiting for the last 2 to 3 days. The patient did come to the ER on 07/13/2017 with nausea, vomiting, and abdominal pain; however, after treatment she was discharged home. The patient had a white count of 13.4 and elevated liver enzymes with bilirubin of 2.9. The patient did undergo a CT of the abdomen and pelvis yesterday, which revealed no free intraperitoneal air or fluid status post cholecystectomy with colon hepatic duct dilated to 1.2 mm, but with the common bile duct tapering normally through the head of the pancreas. The patient also had small fat containing umbilical hernia inferior to which it is a small fluid collection within the deep midline subcutaneous fat measuring 4.2 x 1.8 x 1.8 cm, containing bolus of air with stranding of adjacent fat which appears to be inflammatory. The patient was requested to follow up with her PMD in 2 to 3 days; however, she returns to ER with continuous symptoms and drainage, and was seen by ER physician. The patient was noted to have white count of 11.8 with no left shift. The patient was afebrile; however, the patient's liver functions did reveal bilirubin went up to 3.3, mostly direct. The patient continues to have significant elevation of liver enzymes including AST 261, ALT 377, alkaline phosphatase 203. The patient is being admitted for further evaluation and management. Denies any chest pain or shortness of breath. No reported headache, dizziness, syncope. No reported leg pain or itching. No reported leg pain. Hospital Course - Nausea and vomiting, resolved. Dr. Ricketts and Dr Fountain is following in gastroenterology consultation. S/p MRCP r/o CBD or retained stone, negative - Status post laparoscopic cholecystectomy. Dr. Osorio is following in general surgery consultation. - Post op wound, cont abx and current wound care. Home Meds Active Scripts Hydrocodone/Acetaminophen ([place] 5-325 Tablet) 1 Each Tablet, 1 EACH PO Q4 for PAIN, #20 TAB Prov:MADAN CARD 07/17/17 Zolpidem Tartrate (Ambien Gautam) 5 Mg Tablet, 5 MG PO HS Y for INSOMNIA, #30 TAB Prov:MADAN CARD 07/17/17 Cephalexin* (Cephalexin*) 500 Mg Capsule, 500 MG PO Q8 for 7 Days, #21 CAP Prov:MADAN CARD 07/17/17 Reported Medications Oxymetazoline Hcl* (Afrin [place]*) 0.05% - 15 Ml [place], 2 SPRAYS NASAL BID, #1 EA to each nostril 07/14/17 [ Control] No Conflict Check, 1 TAB PO DAILY 07/14/17 Follow-up Plan f/up with Dr Osorio in 2 weeks. Primary Care Provider [facility] Time spent on discharge: > 30 minutes MADAN CARD Jul 22, 2017 21:38
== END 2017-07-17 17:15 | disposition home or self-care (01) | DRG 392 ==
LOC: FTE 05:56 → MS1 14:13
PROVIDERS: ADMIT Internal Medicine; ATTEND Internal Medicine
DX: K52.9 Noninfective gastroenteritis and colitis, unspecified (principal); T81.31XA Disruption of external operation (surgical) wound, not elsewhere classified, initial encounter; Z68.41 Body mass index [BMI] 40.0-44.9, adult; E86.0 Dehydration; K42.9 Umbilical hernia without obstruction or gangrene; F12.90 Cannabis use, unspecified, uncomplicated; E66.01 Morbid (severe) obesity due to excess calories
CPT/HCPCS: 74181; 80048; 80053; 80076; 81001; 82270; 83690; 85025; 86704; 86709; 86803; 87045; 87070; 87075; 87086; 87340; 90686; 96374; 96375; C9113; J1170; J2185; J2270; J2405; J2543; J3480; J7030

== ENCOUNTER 2018-01-17 22:11 | Emergency (ER) | END 2018-01-18 03:08 | disposition left against medical advice (07) ==

== ENCOUNTER 2018-01-27 11:51 | Emergency (ER) | END 2018-01-27 14:35 | disposition home or self-care (01) ==

== ENCOUNTER 2018-03-03 14:29 | Emergency (ER) | END 2018-03-03 15:13 | disposition home or self-care (01) ==

== ENCOUNTER 2018-09-17 11:02 | Emergency (ER) | END 2018-09-17 13:22 | disposition home or self-care (01) ==

== ENCOUNTER 2019-03-23 21:22 | Emergency (ER) | payer OTHER ==
[~2019-03-23] VITALS: Ht 165.1 cm; Wt 107.9 kg
[~2019-03-23 21:22] MED LIST changes: +ALBU18HF INHALATION; +ALBU8.5H8 INH; +AZIT250T PO; +BIRTH CONTROL PO; +CEPH500C PO; +D-ME118S24 PO; +HYDR-4011 PO; -ONDA4TAB14 PO; +ONDA8TAB14 PO; +OXYM15SP34 NASAL; +PRED20TA PO; +SODI30SP2 NS; +ZOLP5TAB PO
[2019-03-23 21:28] VITALS: Ht 165.1 cm; Wt 107.9 kg
[2019-03-23] MEDS ORDERED: predniSONE 20 MG TAB PO STA (22:32)
[2019-03-23] MEDS ORDERED: ALBUTEROL 0.5% (NEB) 2.5 MG/0.5 ML AMP INH STA (22:32)
--- NOTE | 2019-03-23 23:51 | ERD ---
ER Documentation Chief Complaint Chief Complaint SOB, HX OF ASTHMA, NO INHALER HPI 38-year-old female with past medical history of asthma presents to the emergency department with complaints of productive cough for the past 1 week. She also reports some wheezing and shortness of breath. She does not have an inhaler currently because she ran out. She denies any fevers. Symptoms are currently moderate in severity. She denies any other symptoms currently. ROS All systems reviewed and are negative except as per history of present illness. Medications Home Meds Active Scripts Sodium Chloride (Saline Nasal [place]) 30 Ml [place], 30 ML NS BID PRN for NASAL CONGESTION, #1 BOTTLE Prov:GLEN JC DO 09/17/18 D-Methorphan Hb/P-Epd HCl/Bpm (Gxfrzqfalp-Whbfrgviegn-Hr Syr) 118 Ml Syrup, 5 ML PO Q4H PRN for COUGH for 7 Days, #1 BOTTLE Prov:GLEN JC DO 09/17/18 Albuterol Sulfate* (Ventolin HFA*) 18 Gm Hfa.aer.ad, 2 PUFF INHALATION Q4H, #1 INHALER Prov:GLEN JC DO 09/17/18 Albuterol Sulfate* (Proair HFA*) 8.5 Gm Hfa.aer.ad, 2 PUFF INH Q6, #1 INHALER Prov:RENZO GELLER PA-C 03/03/18 Albuterol Sulfate* (Proair HFA*) 8.5 Gm Hfa.aer.ad, 2 PUFF INH Q4H PRN for WHEEZING AND SOB, #1 INHALER Prov:ANA DUMONT MD 01/27/18 Prednisone* (Prednisone*) 20 Mg Tab, 60 MG PO DAILY for 4 Days, TAB Prov:ANA DUMONT MD 01/27/18 Azithromycin* (Zithromax*) 250 Mg Tablet, 250 MG PO .NICKCK DIRECTED, #6 TAB TAKE 500 MG (2 TABS) THE FIRST DAY THEN 250 MG (1 TAB) DAYS 2-5 Prov:ANA DUMONT MD 01/27/18 Ondansetron (Ondansetron Odt) 8 Mg Tab.rapdis, 8 MG PO Q6H PRN for NAUSEA AND/OR VOMITING, #20 TAB Prov:YARI RECINOS PA-C 01/18/18 Hydrocodone/Acetaminophen ([place] 5-325 Tablet) 1 Each Tablet, 1 TAB PO Q6H PRN for PAIN, #20 TAB Prov:YARI RECINOS PA-C 01/18/18 Hydrocodone/Acetaminophen ([place] 5-325 Tablet) 1 Each Tablet, 1 EACH PO Q4 for PAIN, #20 TAB Prov:MADAN CRAD 07/17/17 Zolpidem Tartrate (Ambien Gautam) 5 Mg Tablet, 5 MG PO HS PRN for INSOMNIA, #30 TAB Prov:MADAN CARD 07/17/17 Cephalexin* (Cephalexin*) 500 Mg Capsule, 500 MG PO Q8 for 7 Days, #21 CAP Prov:MADAN CARD 07/17/17 Reported Medications Oxymetazoline Hcl* (Afrin [place]*) 0.05% - 15 Ml [place], 2 SPRAYS NASAL BID, #1 EA to each nostril 07/14/17 [ Control] No Conflict Check, 1 TAB PO DAILY 07/14/17 Allergies Allergies: Coded Allergies: No Known Allergy (Unverified , 01/27/18) PMhx/Soc History of Surgery: Yes (cholecystectomy) Anesthesia Reaction: No Hx Neurological Disorder: No Hx Respiratory Disorders: Yes (asthma) Hx Cardiac Disorders: No Hx Psychiatric Problems: No Hx Miscellaneous Medical Probl: No Hx Alcohol Use: No Hx Substance Use: Yes (Marijuana socially) Hx Tobacco Use: No Smoking Status: Never smoker FmHx Family History: No diabetes Physical Exam Vitals Vital Signs Date Temp Pulse Resp B/P (MAP) Pulse Ox O2 O2 Flow FiO2 Time Delivery Rate 03/23/19 68 22 97 21 22:57 03/23/19 99.1 75 18 128/78 98 21:28 (95) Physical Exam Const: No acute distress Head: Atraumatic Eyes: Normal Conjunctiva ENT: Normal External Ears, Nose and Mouth. Posterior pharynx is clear. No erythema. No tonsillar exudate or hypertrophy. Neck: Full range of motion. No meningismus. Resp: Scattered wheezes. Crackles noted to bilateral lower lung flowers. No respiratory distress. Cardio: Regular rate and rhythm, no murmurs Skin: No petechiae or rashes Ext: No cyanosis, or edema Neur: Awake and alert Psych: Normal Mood and Affect Results 24 hrs Current Medications Medications Dose Sig/Yesenia Start Time Status Last (Trade) Ordered Route PRN Stop Time Admin Dose Reason Admin Albuterol 10 mg ONCE STAT 03/23/19 DC 03/23/19 (Proventil INH 22:32 22:57 0.5% (Neb)) 03/23/19 22:34 Prednisone 60 mg ONCE STAT 03/23/19 DC (Prednisone) PO 22:32 03/23/19 22:34 [place] [id number] Radiology Main Line: [phone] DIAGNOSTIC IMAGING REPORT Patient: ISABEL ADAMS : 1980 Age: 38 Sex: F MR #: [id number] DOS: 03/23/192231 Ordering MD: JADA CADENA PA-C Location: [facility] Room/Bed: PROCEDURE: XR Chest. CLINICAL INDICATION: Asthma exacerbation TECHNIQUE: Single frontal view of the chest was obtained COMPARISON: DR ALEJANDRE 09/17/2018 FINDINGS: Hypoinflation of the lungs and bibasilar atelectasis and possible infiltrates. Hypoinflation of the lungs accentuates the size of the cardiac silhouette. There is definite no pleural effusion or pneumothorax. Oxygen tubing project over chest. IMPRESSION: Hypoinflation of the lungs and bibasilar atelectasis and possible infiltrates. Hypoinflation of the lungs accentuates the size of the cardiac silhouette. RPTAT: HJES .Lucius Araujo MD, Date Time Electronically viewed and signed by .Lucius Araujo MD, MD on 03/23/2019 23:43 .S/ CC: JADA CADENA PA-C [id number] Procedures/MDM 38-year-old female resents to the emergency department with signs and symptoms most consistent with acute asthma exacerbation and pneumonia. Patient is nontoxic and afebrile and well-appearing. She was administered albuterol breathing treatment and prednisone with Improvement of her symptoms. She was otherwise stable for discharge and further outpatient management with a prescription for azithromycin, Ventolin, Medrol Dosepak. Patient was advised to return to the department immediately for any new or worsening or concerning symptoms. She understands and agrees with the plan. No evidence of sepsis, pneumothorax, pulmonary embolism, aortic dissection, or other emergencies. Departure Diagnosis: Primary Impression: Asthma with acute exacerbation Additional Impression: Pneumonia Condition: Fair Patient Instructions: Asthma, Acute (Adult) Additional Instructions: Follow up with your PCP within the next 1-3 days for a repeat evaluation. If you require a referral to a specialist, your Primary Care Provider may be able to provide this for you. In most patient cases, a referral is not required. If you have further questions regarding this matter, please ask your Primary Care Provider. Return the the emergency department immediately if symptoms worsen or change. If you have any questions regarding medications, ask your pharmacist or us before you leave. If any adverse reactions, occur while taking your medications, discontinue the treatment and return to the emergency department immediately. If any new or worsening symptoms, uncontrolled fevers, or other unexplained symptoms occur, return to the emergency department immediately. Take your medications as directed, and complete the entire course of treatment. JADA CADENA PA-C Mar 23, 2019 23:51
[2019-03-23] MEDS ORDERED: ALBU18HF INHALATION (23:52)
[2019-03-23] MEDS ORDERED: AZIT250T PO (23:52)
[2019-03-23] MEDS ORDERED: MED4DP PO (23:52)
[2019-03-24 00:59] VITALS: BP 136/73; PULSE 78; RESP 16
== END 2019-03-24 01:00 | disposition home or self-care (01) ==
LOC: FTE 21:22
DX: J45.901 Unspecified asthma with (acute) exacerbation (principal); J18.9 Pneumonia, unspecified organism
CPT/HCPCS: 71045; 94644; J7512; Z7502; Z7610